=== PATIENT | female | born 1950 | race Caucasian/White ===

== ENCOUNTER 2016-12-29 13:42 | Emergency (ER) | payer OTHER ==
[2016-12-29 13:53] VITALS: BP 119/70; PULSE 87; RESP 20; TEMP 98.2
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
--- NOTE | 2016-12-29 14:50 | XR ---
EXAMINATION TYPE: XR knee complete RT DATE OF EXAM: 12/29/2016 CLINICAL HISTORY: Pain and swelling for 3 weeks. TECHNIQUE: Three views of the right knee are obtained. COMPARISON: None. FINDINGS: There is no acute fracture/dislocation evident in right knee. Mild joint tricompartment j oint space loss is seen. There is spur superior anterior patellar distal quadriceps tendon attachment . Soft tissue and suprapatellar bursa is consistent with moderate joint effusion, nonspecific finding . IMPRESSION: There is mild degenerative change with moderate to large suprapatellar joint effusion.
--- NOTE | 2016-12-29 15:34 | US ---
EXAMINATION TYPE: US venous doppler duplex LE RT DATE OF EXAM: 12/29/2016 3:16 PM COMPARISON: NONE CLINICAL HISTORY: Pain. rt knee pain x 1 month. No hx of DVT or on blood thinners. SIDE PERFORMED: Right TECHNIQUE: The lower extremity deep venous system is examined utilizing real time linear array sonog dean with graded compression, doppler sonography and color-flow sonography. VESSELS IMAGED: External Iliac Vein (EIV) Common Femoral Vein Deep Femoral Vein Greater Saphenous Vein * Femoral Vein Popliteal Vein Small Saphenous Vein * Proximal Calf Veins (* superficial vessels) Right Leg: Appears negative for DVT Grayscale, color doppler, spectral doppler imaging performed of the deep veins of the right lower ext remity. There is normal flow, compressibility, vascular waveforms of the right lower extremity. IMPRESSION: No ultrasound evidence for acute DVT in the right lower extremity.
== END 2016-12-29 16:02 | disposition home or self-care (01) ==
LOC: EC 13:42
DX: M25.461 Effusion, right knee (principal); F17.200 Nicotine dependence, unspecified, uncomplicated; Z79.899 Other long term (current) drug therapy
CPT/HCPCS: 99284

== ENCOUNTER 2017-10-24 18:19 | Emergency (ER) | payer OTHER ==
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
[2017-10-24 19:02] LABS: Basophils % (A) 0 %; Eosinophils # (A) 0.1 k/uL (0-0.7); Eosinophils % (A) 1 %; HCT 44.6 % (34.0-46.0); HGB 15.1 gm/dL (11.4-16.0); Lymphocytes # (A) 2.2 k/uL (1.0-4.8); Lymphocytes % (A) 23 %; MCH 32.4 pg (25.0-35.0); MCHC 33.9 g/dL (31.0-37.0); MCV 95.7 fL (80.0-100.0); Mean Platelet Volume 7.7; Monocytes # (A) 0.6 k/uL (0-1.0); Monocytes % (A) 6 %; Neutrophils # (A) 6.4 k/uL (1.3-7.7); Neutrophils % (A) 67 %; Platelet Count 272 k/uL (150-450); RBC 4.66 m/uL (3.80-5.40); WBC 9.5 k/uL (3.8-10.6)
[2017-10-24 19:10] VITALS: RESP 16
[2017-10-24 19:13] LABS: ALT 77 U/L (9-52); AST 58 U/L (14-36); Albumin 4.5 g/dL (3.5-5.0); Alcohol <10 mg/dL; Alkaline Phosphatase 103 U/L (38-126); Amylase 104 U/L (30-110); Anion Gap 15 mmol/L; Blood Urea Nitrogen 15 mg/dL (7-17); Calcium 9.3 mg/dL (8.4-10.2); Carbon Dioxide 22 mmol/L (22-30); Chloride 104 mmol/L (98-107); Glucose 126 mg/dL (74-99); Lipase 203 U/L (23-300); Magnesium 2.1 mg/dL (1.6-2.3); Potassium 3.8 mmol/L (3.5-5.1); Sodium 141 mmol/L (137-145); Total Bilirubin 0.5 mg/dL (0.2-1.3); Total Protein 7.5 g/dL (6.3-8.2)
[2017-10-24 19:29] LABS: Creatine Kinase 78 U/L (30-135)
--- NOTE | 2017-10-24 19:33 | XR ---
EXAMINATION: XR chest 2V DATE AND TIME: 10/24/2017 7:04 PM ORDERING PROVIDER: Justin Llanos MD CLINICAL INDICATION: Chest Pain TECHNIQUE: PA and lateral COMPARISON: 01/03/2010 DESCRIPTION: Architectural distortion related with scoliosis noted. The lungs appear to be clear. The pleural spaces are negative. The cardiac silhouette is not enlarged. The mediastinal and pleural sasha houettes are unremarkable. The skeletal structures are intact without focal findings. The soft tissues are unremarkable. IMPRESSION: NO ACUTE PROCESS.
[2017-10-24 19:34] LABS: Partial Thromboplastin Time 22.2 sec (22.0-30.0); Prothrombin Time 9.6 sec (9.0-12.0)
[2017-10-24 19:41] LABS: Creatine Kinase MB 0.5 ng/mL (0.0-2.4); Troponin I <0.012 ng/mL (0.000-0.034)
[2017-10-24 22:37] VITALS: BP 148/71; PULSE 89; TEMP 97
== END 2017-10-24 22:52 | disposition home or self-care (01) ==
LOC: EC 18:19
DX: M94.0 Chondrocostal junction syndrome [Tietze] (principal); J44.9 Chronic obstructive pulmonary disease, unspecified; F17.200 Nicotine dependence, unspecified, uncomplicated
CPT/HCPCS: 36415; 71046; 80053; 80320; 82150; 82550; 82553; 83690; 83735; 84484; 85025; 85610; 85730; 93005; 99285

== ENCOUNTER → 2023-12-13 | Outpatient (CLI) | payer MEDICARE ==
[2023-12-13 11:52] VITALS: BP 121/78; PULSE 72; RESP 18; TEMP 97.6
--- NOTE | 2023-12-13 12:28 | P.GSCN ---
History of Present Illness Consult date: 12/13/23 Reason for Consult: abnormal mammogam and ultrasound Requesting physician: Deborah Driver History of present illness: Natalie is a 73-year-old female seen in consultation for Reta Driver regarding the radiographic abnormality and bilateral breast. [place] [address]. This revealed progressive increasing pleomorphic appearing calcifications in the right breast in the upper inner q uadrant with a new second grouping of calcifications more anteriorly. In the left breast there was a nodular density identified and a left breast ultrasound and diagnostic mammogram were recommended. These were performed and [id number]. The patient was noted to have persistent nodular asymmetry in the outer left breast and an ultrasound revealed a hypoechoic mass 1:00 3 cm from the nipple serial 0.4 cm in size. In the context of the findings in the right breast was recommended that an ultrasound core biopsy of this lesion be performed. Of concern is the fact that the calcifications of [place] [id number]. She was told she needed a biopsy last year and did not have it done. She then had some uterine concerns and did not have it done. she is not complaining of any recent trauma or infection in her breast. She is complaining of some nodularity in her right breast. It has been there for about a year. She is not sure if it has changed in size. She complains of bilateral nipple pain. surgery: no breast surgery, no biopsies in the past Caffiene: 6 pops/day nicotine: stopped 3 months ago, used to smoke 11/ PPD for 50 years alcohol: an alcoholic occasional now BCP: < 1 year hormones: none family history: mother: mass in her breast maternal aunt; breast sister: breast cancer hormonal history: Menarche: 15 , age at first : 25, breat fed: no menopause: 47 Surgical History: colonoscopy Medical History: Scoliosis Emphysema COPD HTN social history: Nicotine: Used to smoke 1-1/2 packs per day for 50 years stopped 3 months ago Alcohol: Recovering alcoholic, occasional beer now Drugs:none Review of Systems - Constitutional Denies fever, Denies weight loss - EENT Eyes: bilateral blurred vision Ears: bilateral: tinnitus Ears, nose, mouth and throat: Denies dysphagia - Breasts bilateral: as per HPI - Cardiovascular Reports shortness of breath, Denies chest pain - Respiratory Reports as per HPI - Gastrointestinal Gastrointestinal Comment(s): diverticulitis Reports constipation, Reports diarrhea - Genitourinary Genitourinary: Denies dysuria, Denies hematuria Menstruation: Reports postmenopausal - Musculoskeletal Musculoskeleta Comment(s): back and neck pain - Integumentary Reports unusual bruising, Denies rash - Neurological Denies headaches, Denies syncope - Psychiatric Reports as per HPI, Reports anxiety, Reports depression - Endocrine Reports fatigue - Hematologic/Lymphatic Denies easy bleeding, Denies easy bruising - Allergic/Immunologic Reports as per HPI Past Medical History Past Medical History: COPD, Hypertension Additional Past Medical History / Comment(s): scoliosis, previous problem with the right knee--effusion, emphysema.. Herniated disc L4,L5, Left knee with edema History of Any Multi-Drug Resistant Organisms: None Reported Past Surgical History: Section Past Anesthesia/Blood Transfusion Reactions: No Reported Reaction Past Psychological History: Anxiety, Depression Smoking Status: Current every day smoker Past Alcohol Use History: Occasional Additional Past Alcohol Use History / Comment(s): A couple beers a week Past Drug Use History: None Reported Medications and Allergies Home Medications Medication Instructions Recorded Confirmed Type ALPRAZolam [Xanax] 0.5 mg PO ONCE PRN 10/24/17 12/13/23 History lisinopriL [Zestril] 20 mg PO BID 12/26/22 12/13/23 History Sertraline [Zoloft] 50 mg PO DAILY 12/04/23 12/13/23 History Allergies Allergy/AdvReac Type Severity Reaction Status Date / Time No Known Allergies Allergy Verified 12/13/23 11:46 Surgical - Exam Vital Signs Temp Pulse Resp BP Pulse Ox 97.6 F 72 18 121/78 93 L 12/13/23 11:46 12/13/23 11:46 12/13/23 11:46 12/13/23 11:46 12/13/23 11:46 - General moderate distress - Eyes normal ocular movement - Neck trachea midline - Respiratory normal respiratory effort, clear to auscultation - Cardiovascular Heart Sounds: normal: S1, S2 - Abdomen Abdomen: soft, non tender, no guarding, no rigid, no rebound - Integumentary normal turgor - Musculoskeletal scoliosis normal gait - Psychiatric oriented to time, oriented to person, oriented to place, speech is normal, memory intact Breast Exam: BRA: 34B Inspection: bilateral grade 2 ptosis Palpation: Right breast: Multiple positional exam nodularity upper inner quadrant approximately 2 cm in size, no other dominant masses or nodules of concern Right axilla: No adenopathy of concern Left breast: Multiple positional exam fibrocystic changes no dominant masses or nodules of concern Left axilla: No adenopathy of concern Results mammogram and ultrasound personally interpreted mammogram was from [address]73, ultrasound and diagnostic left breast mammogram [id number] Recommendation: 1. Right breast stereotactic core biopsy 2. Left breast ultrasound-guided core biopsy Assessment and Plan Assessment: Impression: 73-year-old female with radiographic abnormality bilateral breast Palpable mass right breast scoliosis Plan: Right breast stereotactic core biopsy Left breast ultrasound-guided core biopsy Risks and benefits of the procedure discussed with the patient, her , and her daughter. They understand and wish to proceed. Risks include but are not limited to bleeding, infection, reaction to the anesthetic. Additionally if the biopsy profile to be discordant and further tissue acquisition may be necessary. At the termination of the procedure a marking clip will be left in the breast. The patient and her family understand this. CC: Deborah Drivre
== END ==
LOC: WWCWWP 10:27
PROVIDERS: ATTEND Surgery
DX: R92.1 Mammographic calcification found on diagnostic imaging of breast (principal); N64.89 Other specified disorders of breast; N63.10 Unspecified lump in the right breast, unspecified quadrant; N63.21 Unspecified lump in the left breast, upper outer quadrant; N64.4 Mastodynia; Z87.891 Personal history of nicotine dependence; Z80.3 Family history of malignant neoplasm of breast

== ENCOUNTER → 2023-12-20 | Day surgery (SDC) | payer MEDICARE ==
[2023-12-20] MEDS: ALPRAZolam 0.25 MG TAB PO PRN (07:40)
[2023-12-20 07:45] VITALS: BP 118/78; PULSE 77; RESP 16; TEMP 98.1
--- NOTE | 2023-12-20 08:27 | P.CON ---
Consult Note - . Consult date: 12/20/23 Assessment/Plan:: Natalie is a 73-year-old female seen in consultation for Deborah Driver on 12-13-2023 regarding a radiographic abnormalities bilaterally in the breast. She had had a bilateral mammogram performed on 11-12-2023. This revealed progressive increasing pleomorphic appearing calcifications in the right breast in the upper inner quadrant with a new second grouping of calcifications more anteriorly. In the left breast there was a nodular density identified and a left breast ultrasound and diagnostic mammogram were recommended. These were performed on 11-21-2023. The patient was noted to have persistent nodular asymmetry in the outer left breast and an ultrasound revealed a hypoechoic mass at 1:00 3 cm from the nipple 0.4 cm in size. In the context of these findings the patient had been scheduled for a right breast stereotactic core biopsy and a left breast ultrasound-guided core biopsy. The patient had further workup performed when she presented for stereo biopsy on 12-20-2023. This workup was an ultrasound of the right breast and in this ultrasound the area of microcalcifications was clearly identified as was a suspicious lymph node. Therefore after personal review of the mammogram and ultrasound performed on this date with Dr. Kareen Stock and discussion with Dr. Kareen Stock it was decided that the best approach would be an ultrasound-guided core biopsy of the lesion in the right breast as well as the right axilla. Aguilar tionally secondary to the ability to use utilize lidocaine being limited the area in the left breast will undergo an ultrasound core biopsy at a different date. The patient will then follow-up with Dr. Lance. This information was discussed with the patient in the presence of Kayleen Gaxiola. The patient understands that instead of a stereotactic core biopsy today she will have an ultrasound core biopsy of the lesion in the right breast as well as a right axillary lymph node. She will then be scheduled for a left breast ultrasound-guided core biopsy. All questions were answered. The patient will follow-up with Dr. Lance following the biopsies.
== END ==
LOC: RADMAMWWP 07:15
PROVIDERS: ATTEND Surgery
DX: N64.89 Other specified disorders of breast (principal)

== ENCOUNTER → 2023-12-20 | Day surgery (SDC) | payer MEDICARE ==
--- NOTE | 2024-01-22 09:04 | USB ---
Risk Values: Sakina 5 year model risk: 6.4%. NCI Lifetime model risk: 16.8%. Prior Study Comparison: 02/19/2005 Left Diagnostic Mammogram, [facility]. 04/14/2008 Bilateral Diagnostic Mammogram, [facility]. 07/18/2009 Bilateral Screening Mammogram, [facility]. Pathology Description: Location: 2 o'clock, axilla. Needle Type: Celero Cores: 2 Gauge: 12 Complications: Excessive bleeding Held pressure at axilla 15+ minutes; meño reassessed and rebandaged after " Mammo" The procedure of ultrasound guided core biopsy was explained to the patient. Benefits, alternatives, and risks were discussed. An informed consent was then obtained. The patient was placed in supine positioning for imaging and for the procedure. The overlying skin was prepped and draped in usual sterile fashion. Lidocaine buffered with bicarbonate was used as anesthetic into the skin and subcutaneous tissue up to area of concern in the right 2:00 breast and right axilla breast. A elizabeth was made with surgical scalpel. Under ultrasound guidance, a 12-gauge vacuum assisted biopsy gun device was used to obtain 3 core samples were obtained from the right to chronic lesion and 2 samples were obtained from the abnormal right axillary lymph node. Following this, a biopsy clip was left in each lesion. The patient tolerated the procedure well without any immediate complication. The patient was kept in the radiology department for short stay after the procedure and then discharged home in stable condition. Postprocedure mammogram: Patient refused postprocedural mammogram. Impression: Successful, uncomplicated ultrasound guided core biopsy of area of concern in the right 2:00 breast and right axillary lymph node, full pathology results to follow. Pathology Results: Result: Malignant, Invasive ductal carcinoma. Pathology and radiology were reviewed. Findings are concordant. A. RIGHT BREAST, 2:00, NEEDLE CORE BIOPSY: Invasive poorly differentiated ductal carcinoma (Grade 3). See Surgical Pathology Cancer Case Summary. B. RIGHT AXILLA LYMPH NODE, CORE BIOPSY: Lymph node positive for metastatic poorly differentiated ductal mammary carcinoma. Greatest dimension of tumor deposit measures 9 mm. See Surgical Pathology Cancer Case Summary. Overall Assessment: Malignant Management: Diagnostic Breast Ultrasound of the right breast in 6 months. Electronically signed and approved by: Ike Hidalgo M.D. Radiologis
== END ==
LOC: RADUSWWP 07:12
PROVIDERS: ATTEND Surgery
DX: R92.8 Other abnormal and inconclusive findings on diagnostic imaging of breast
CPT/HCPCS: 88305; 88342; 88341; 19083; 19084; A4648

== ENCOUNTER → 2024-01-02 | Day surgery (SDC) | payer MEDICARE ==
--- NOTE | 2024-01-30 09:18 | USB ---
Findings: The outside [place] report indicates a 4 mm round hypoechoic area 3 cm from the nipple 1:00 position left breast. The report indicates that this is not a mammographic correlate for an area located more peripherally on mammogram and which may represent superimposition shadow given the lack of an ultrasound finding. We scanned the abdomen around the 1:00 position, 3 cm from the nipple. Multiple small cysts or areas of duct ectasia are present, largest measuring 7 x 4 x 8 mm. No suspicious hypoechoic lesion or mass is identified that would warrant biopsy. Biopsy is being deferred at this time. Six-month follow-up mammogram and ultrasound can be performed. Findings and impression are discussed with the patient. IMPRESSION: Discontinued left breast ultrasound-guided biopsy. Findings here represent either small cysts or ectatic ducts measuring up to 8 mm. No suspicious biopsy target is identified. Refer to impression on patient's outside [place] report as to deciding between MRI versus six-month follow-up mammogram and ultrasound of the left breast. RECOMMENDATION: Proceed with appropriate surgical and oncologic management of patient's biopsy-proven right breast cancer. Management: Oncologic Management of the right breast. Electronically signed and approved by: Meredith Palomares M.D. Radiologist
--- NOTE | 2024-02-04 15:48 | MM ---
Reason for Exam: Post Procedure Mammogram. Last mammogram was performed 14 year(s) and 6 month(s) ago. Patient History: Menarche at age 16. First Full-Term at age 25. Postmenopausal. Breast cancer, right, age 73. 12/20/2023, US biopsy breast add'l VAD RT on the Right side. 12/20/2023, Malignant US biopsy breast VAD RT on the right side. 02/19/2005, Benign Cyst Aspiration on the left side. 02/19/2005, Benign Cyst Aspiration on the left side. 01/02/2024, US discontinued breast core LT on the left side. Maternal aunt had breast cancer, age 42. Sister had breast cancer, age 57. Mother had breast cancer, age 80. Prior Study Comparison: 02/19/2005 Left Diagnostic Mammogram, [facility]. 04/14/2008 Bilateral Diagnostic Mammogram, [facility]. 07/18/2009 Bilateral Screening Mammogram, [facility]. Tissue Density: Right: The breasts are heterogeneously dense, which may obscure small masses. Findings: Postbiopsy mammogram is being performed, delayed from 12/20/2023 due to postbiopsy hematoma at that time. Pleomorphic calcifications redemonstrated upper outer quadrant. Microclip in this region from recent biopsy. Additional microcalcifications located at a middle depth along the retroareolar plane for possible extent of 4.5 cm. Areas of asymmetric density medial right CC view anterior and middle depth also noted. Please refer to findings on MRI 02/01/2024 for suspicion of multicentric disease. Overall Assessment: Known biopsy proven malignancy, BI-RAD 6 Management: Surgical Consultation of the right breast. Electronically signed and approved by: Meredith Palomares M.D. Radiologist
== END ==
LOC: RADUSWWP 12:00
PROVIDERS: ATTEND Surgery
DX: Z53.8 Procedure and treatment not carried out for other reasons (principal); N60.42 Mammary duct ectasia of left breast
CPT/HCPCS: 77065

== ENCOUNTER → 2024-01-22 | Outpatient (CLI) | payer MEDICARE ==
[2024-01-22 12:17] VITALS: BP 118/74; PULSE 98; RESP 16; TEMP 98.1
--- NOTE | 2024-01-22 13:07 | P.PN ---
Subjective Progress Note Date: 01/22/24 Principal diagnosis: right breast IDC, ER/AL(-), Her2(+), ? lesion in the left breast Natalie is a 73 year old female who was diagnosed with a right breast grade 3 invasive ductal carcinoma. This is ER/AL negative and HER2 positive. The patient was also noted to have persistent nodular asymmetry in the outer left breast and an ultrasound core biopsy attempt was canceled. It was recommended as per radiology at that time that an MRI of the breast be performed. Presented at tumor board on 01-21-2024. At tumor board the recommendation was for neoadjuvant treatment. Objective - Vital Signs Vital signs: Vital Signs Temp 98.1 F 01/22/24 12:10 Pulse 98 01/22/24 12:10 Resp 16 01/22/24 12:10 BP 118/74 01/22/24 12:10 Pulse Ox 97 01/22/24 12:10 FiO2 Intake & Output 01/21/24 01/22/24 01/22/24 18:59 06:59 18:59 Weight 71.214 kg - Constitutional General appearance: Present: cooperative, mild distress - EENT ENT: Present: hearing grossly normal - Neck Neck: Present: normal ROM - Integumentary Integumentary: Present: normal turgor - Psychiatric Psychiatric: Present: A&O x's 3, appropriate affect, intact judgment & insight Assessment and Plan Assessment: Impression: Patient seen with independant historian, recorded appointment conversation Questionable lesion left breast Right breast invasive ductal carcinoma grade 3 ER AL negative HER2 positive Plan: Appointment medical oncology Breast MRI Follow-up here in 2 months CC: Dr. Michaels
== END ==
LOC: WWCWWP 11:24
PROVIDERS: ATTEND Surgery
DX: C50.911 Malignant neoplasm of unspecified site of right female breast (principal); N64.89 Other specified disorders of breast; F17.200 Nicotine dependence, unspecified, uncomplicated; Z17.1 Estrogen receptor negative status [ER-]

== ENCOUNTER → 2024-02-01 | Outpatient (CLI) | payer MEDICARE ==
--- NOTE | 2024-02-04 08:45 | BMR ---
Addendum ADDENDUM: AP dimension of primary lesion likely estimates 4.5 cm by MRI. 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 Pretreatment staging. COMPARISON: PRIOR MRIs: None available. Correlation to mammograms: 11/21/2023, 11/22/2022. Correlation to ultrasound: 11/21/2023, 12/20/2023. CONTRAST: 7 cc Gadavist IV gadolinium contrast TECHNIQUE: Study was performed at [facility] with Radiologic interpretation by [facility] Multiplanar multisequence MR imaging of both breasts was performed with a dedicated breast coil. Images were obtained before and after administration of IV gadolinium, using the standard breast mass protocol. Computer aided detection was utilized for interpretation. FINDINGS: LMP: Postmenopausal General breast composition: The breast is heterogeneously dense Background parenchymal enhancement: Marked Patient motion limits evaluation. RIGHT BREAST: The T2 weighted series shows no areas of abnormal signal intensity. Review of the dynamic series shows irregular mass in the upper inner quadrant measuring approximately 2.3 x 2.2 x 1.4 cm with biopsy site marker. There is ventral extension of non mass enhancement by 1.8 cm from the primary mass. Additional scattered foci of enhancement are noted within the upper inner quadrant to the retroareolar breast within 1 cm of the nipple. Few scattered foci in the lateral breast. These area appear to correspond to calcifications appreciated mammographically. LEFT BREAST: The T2 weighted series shows no areas of abnormal signal intensity. Review of the dynamic series shows marked background enhancement significantly limiting evaluation for additional sites of disease in the left breast. These areas demonstrate similar to [place] that is to known primary malignancy in the right breast. LYMPH NODES: Single enlarged 2.0 cm right axillary lymph node. No evidence of left axillary or internal mammary adenopathy. IMPRESSION: RIGHT BREAST: Known malignancy in the right breast at 2 o'clock estimating at least 2.3 cm with 1.8 cm ventral non-mass enhancement. Additional areas of enhancement in the right breast in a multicentric distribution are concerning for additional sites of disease. These appear to correspond to calcifications appreciated mammographically. (Retroareolar and lateral) If breast conservation is planned, additional stereotactic biopsies of farthest extent can be performed following magnification views for biopsy planning. Known metastasis to enlarged right axillary lymph node. LEFT BREAST: No MR evidence of malignancy. OVERALL ASSESSMENT -- BI-RADS 5: Highly suggestive of malignancy MTDD
== END | disposition home or self-care (01) ==
LOC: RADMRIMAIN 10:32
PROVIDERS: ATTEND Surgery
DX: C50.211 Malignant neoplasm of upper-inner quadrant of right female breast (principal)
CPT/HCPCS: 77049

== ENCOUNTER → 2024-02-04 | Outpatient (CLI) | payer MEDICARE ==
--- NOTE | 2024-02-04 16:57 | CA ---
Transthoracic Echo Report Name: Natalie Forde Age: 73 Gender: F : 1950 Exam Date: 02/04/2024 11:30 Exam Location: [place] [facility] Ht (in): 61 Wt (lb): 157 Ordering Physician: Brenton Oconnell MD Attending/Referring Phys: Communications Department Chair Mili Elder RDCS Procedure CPT: Indications: Z01.818 Chemo Cardiac Hx: Technical Quality: Good Contrast 1: Total Dose (mL): Contrast 2: Total Dose (mL): MEASUREMENTS (Male / Female) Normal Values 2D ECHO LV Diastolic Diameter PLAX 3.8 cm 4.2 - 5.9 / 3.9 - 5.3 cm LV Systolic Diameter PLAX 2.5 cm IVS Diastolic Thickness 1.1 cm 0.6 - 1.0 / 0.6 - 0.9 cm LVPW Diastolic Thickness 0.9 cm 0.6 - 1.0 / 0.6 - 0.9 cm LV Relative Wall Thickness 0.5 RV Internal Dim ED PLAX 2.8 cm LA Systolic Diameter LX 3.3 cm 3.0 - 4.0 / 2.7 - 3.8 cm LV Diastolic Volume MOD 4C 70.4 cm??? LV Systolic Volume MOD 4C 28.5 cm??? LV Ejection Fraction MOD 4C 59.5 % LV Cardiac Index MOD 4C 1697.6 cm???/min???m??? LV Diastolic Length 4C 7.3 cm LV Systolic Length 4C 5.9 cm LV Diastolic Volume MOD 2C 46.9 cm??? LV Systolic Volume MOD 2C 17.2 cm??? LV Ejection Fraction MOD 2C 63.4 % LV Cardiac Index MOD 2C 1206.9 cm???/min???m??? LV Diastolic Length 2C 7.5 cm LV Systolic Length 2C 5.9 cm LA Volume 40.8 cm??? 18 - 58 / 22 - 52 cm??? LA Volume Index 22.9 cm???/m??? 16 - 28 cm???/m??? M-MODE Aortic Root Diameter MM 2.8 cm AV Cusp Separation MM 2.0 cm DOPPLER AV Peak Velocity 160.3 cm/s AV Peak Gradient 10.3 mmHg MV Area PHT 2.9 cm??? Mitral E Point Velocity 98.8 cm/s Mitral A Point Velocity 112.3 cm/s Mitral E to A Ratio 0.9 MV Deceleration Time 260.4 ms TR Peak Velocity 200.1 cm/s TR Peak Gradient 16.0 mmHg Right Ventricular Systolic Press 21.0 mmHg FINDINGS Left Ventricle Left ventricular ejection fraction is estimated at 55-60 %. Small left ventricular cavity. Mildly increased septal wall thickness. Good systolic strain Right Ventricle Normal right ventricular size and function. Right ventricular systolic pressure within normal limits. Right Atrium Normal right atrial size. No right atrial thrombus or mass seen. Left Atrium Normal left atrial size. No left atrial thrombus or mass present. Mitral Valve Mitral valve not well visualized. No mitral stenosis, regurgitation or prolapse. Aortic Valve Trileaflet aortic valve. No aortic valve stenosis or regurgitation. Tricuspid Valve Structurally normal tricuspid valve. No tricuspid stenosis, regurgitation or prolapse. Pulmonic Valve Structurally normal pulmonic valve. No pulmonic regurgitation. Pericardium No pericardial or pleural effusion. Aorta Normal size aortic root and proximal ascending aorta. CONCLUSIONS Normal LV function Previewed by: Dr. Gera Dong MD (Electronically Signed) Final Date: 04 February 2024 16:56
== END | disposition home or self-care (01) ==
LOC: RADECHMAIN 11:20
PROVIDERS: ATTEND Internal Medicine Hematology & Oncology
DX: Z01.818 Encounter for other preprocedural examination (principal); J44.9 Chronic obstructive pulmonary disease, unspecified; C50.211 Malignant neoplasm of upper-inner quadrant of right female breast; I10 Essential (primary) hypertension; Z71.3 Dietary counseling and surveillance
CPT/HCPCS: 93306

== ENCOUNTER 2024-02-12 07:53 | Day surgery (SDC) | payer MEDICARE ==
[2024-02-10 09:13] VITALS: BMI 29.5
[~2024-02-12 07:53] MED LIST: Pre Op ABX Message 1 EACH MISC MISCELLANE ONE; fentaNYL (PF) 50 MCG/ML 2 ML AMP IV PRN
[2024-02-12 08:08] VITALS: TEMP 97.8
[2024-02-12] MEDS: IV FLUID CONTINUATION 1,000 ML IV ONE ×2 (08:15→09:28)
[2024-02-12] MEDS: ONDANSETRON 4 MG/2 ML VIAL IVP ONE (08:17)
[2024-02-12] MEDS: DEXAMETHASONE SOD PHOSPHATE 4 MG/ML 1 ML VIAL IV ONE (08:17)
[2024-02-12] MEDS: HEPARIN SODIUM,PORCINE 5,000 UNIT/ML 1 ML VIAL SQ PRN (08:17)
[2024-02-12] MEDS: ACETAMINOPHEN TAB 500 MG TAB PO PRN (08:18)
[2024-02-12] MEDS: LACTATED RINGERS 1,000 ML IV SCH (08:19)
[2024-02-12] MEDS ORDERED: fentaNYL (PF) 50 MCG/ML 2 ML AMP ONE (08:24)
[2024-02-12] MEDS ORDERED: ceFAZolin 1 GM/50 ML BAG (PMX) ONE (08:24)
[2024-02-12] MEDS ORDERED: KETOROLAC 15 MG/ML 1 ML VIAL ONE (08:24)
[2024-02-12] MEDS ORDERED: PHENYLEPHRINE-0.9% NACL SYG 1,000 MCG/10 ML SYRINGE ONE (08:24)
[2024-02-12] MEDS ORDERED: LIDOCAINE 1% INJ 10MG/ML (20 ML MDV) ONE (08:24)
[2024-02-12] MEDS ORDERED: ePHEDrine 50 MG/ML 1 ML VIAL ONE (08:24)
[2024-02-12] MEDS ORDERED: MIDAZOLAM 2 MG/2 ML VIAL ONE (08:24)
[2024-02-12] MEDS ORDERED: PROPOFOL 10 MG/ML 20 ML VIAL IV ONE (08:24)
[2024-02-12] MEDS: SODIUM CHLORIDE 0.9% 100 ML with ceFAZolin 2,000 MG IV ONE (08:29)
--- NOTE | 2024-02-12 08:29 | P.GSHP ---
History of Present Illness H&P Date: 02/12/24 Chief Complaint: Right breast cancer 73-year-old female here for Port-A-Cath placement. Patient recently diagnosed with right-sided breast cancer and is scheduled to start chemotherapy in the neoadjuvant setting next week. Patient has not had a port previously. Past Medical History Past Medical History: Cancer, COPD, Hypertension Additional Past Medical History / Comment(s): scoliosis, previous problem with the right knee--effusion, emphysema.. Herniated disc L4,L5, Left knee with edema, breast cancer rt History of Any Multi-Drug Resistant Organisms: None Reported Past Surgical History: Section Additional Past Surgical History / Comment(s): COLONOSCOPY Past Anesthesia/Blood Transfusion Reactions: No Reported Reaction Smoking Status: Former smoker - Past Family History Sister(s) Family Medical History: Cancer Mother Family Medical History: Cancer Daughter(s) Family Medical History: Cancer Medications and Allergies Home Medications Medication Instructions Recorded Confirmed Type lisinopriL [Zestril] 20 mg PO BID 12/26/22 02/12/24 History Sertraline [Zoloft] 50 mg PO DAILY 12/04/23 02/12/24 History diazePAM [Valium] 5 mg PO BID PRN 02/10/24 02/12/24 History traMADol HCL 50 mg PO Q6H PRN 02/10/24 02/12/24 History Allergies Allergy/AdvReac Type Severity Reaction Status Date / Time No Known Allergies Allergy Verified 02/12/24 08:04 Surgical - Exam Vital Signs Temp Pulse Resp BP Pulse Ox 97.8 F 75 16 124/62 92 L 02/12/24 08:06 02/12/24 08:06 02/12/24 08:06 02/12/24 08:06 02/12/24 08:06 Physical exam: General: Well-developed, well-nourished HEENT: Normocephalic, sclerae nonicteric Abdomen: Nontender, nondistended Extremities: No edema Neuro: Alert and oriented Assessment and Plan (1) Breast cancer, right Narrative/Plan: Will proceed with Port-A-Cath placement at this time. Risks of bleeding, infection, DVT, pneumothorax, catheter malfunction, anesthesia related complications were discussed. The patient understands and wishes to proceed. Current Visit: Yes Status: Acute Code(s): C50.911 - MALIGNANT NEOPLASM OF UNSP SITE OF RIGHT FEMALE BREAST SNOMED Code(s): 447645845
[2024-02-12] MEDS: LIDOCAINE 1% INJ 10MG/ML (20 ML MDV) SQ ONE ×2 (08:39→09:09)
[2024-02-12] MEDS ORDERED: traMADol 50 MG TAB PO PRN (09:34)
[2024-02-12] MEDS ORDERED: NALOXONE 0.4 MG/ML 1 ML VIAL IV PRN (09:34)
[2024-02-12] MEDS ORDERED: ACETAMINOPHEN TAB 325 MG TAB PO PRN (09:34)
--- NOTE | 2024-02-12 09:36 | P.OP ---
Date of Procedure: 02/12/24 Procedure(s) Performed: PREOPERATIVE DIAGNOSIS: Right breast cancer POSTOPERATIVE DIAGNOSIS: Same PROCEDURE: Port-A-Cath placement with fluoroscopic and ultrasound guidance SURGEON: Mary EBL: Minimal ANESTHESIA: General COMPLICATIONS: None OPERATIVE PROCEDURE: Patient was brought and placed on the operative table in the supine position. The patient was placed under general anesthesia at that time. The chest and neck were prepped and draped in usual sterile fashion. The ultrasound probe was used to identify the location of the left internal jugular vein. The skin was localized with lidocaine. The Seldinger needle was advanced into the IJ under ultrasound guidance. The wire was advanced through the needle under fluoroscopic guidance into the superior vena cava. A port pocket was created in the left infraclavicular location. The catheter was tunneled from the wire entrance site to the port pocket. The port was then connected to the catheter. The dilator introducer was threaded over the guidewire. The guidewire and dilator were then removed. The catheter was advanced through the introducer and introducer was then removed. The tip was seen to be in the right atrial junction via fluoroscopy. A picture of the radiograph showing the tip of the catheter was taken. Port was flushed with both saline and a Hep-Lock solution. There was good flow both in and out of the port. The port was sutured in underlying tissues using 3-0 silk sutures. The subcutaneous tissues were reapproximated using 3-0 Vicryl sutures and the skin at both locations using 4-0 Monocryl sutures. Skin glue and sterile dressings then applied. DISPOSITION: Stable to recovery room
[2024-02-12] MEDS: HYDROmorphone 0.5 MG/0.5 ML SYRINGE IVP PRN (09:50)
--- NOTE | 2024-02-12 10:11 | XR ---
EXAMINATION TYPE: XR chest 1V confirm line plcmt DATE OF EXAM: 02/12/2024 9:56 AM CLINICAL INDICATION: Female, 73 years old with history of Check Line placement; [facility] COMPARISON: Chest radiographs from 10/24/2017 TECHNIQUE: XR chest 1V confirm line plcmt Frontal view of the chest. FINDINGS: Lungs/Pleura: There is no evidence of pleural effusion, focal consolidation, or pneumothorax. Pulmonary vascularity: Unremarkable. Heart/mediastinum: Cardiomediastinal silhouette is unremarkable. Musculoskeletal: No acute osseous pathology. Other findings: None Lines/Tubes: Tulteh-r-Qbxz projecting over the left hemithorax with distal tip at the cavoatrial junction. IMPRESSION: 1. No evidence for pneumothorax. Left [id number]-t-Hlih in appropriate position. 2. No acute cardiopulmonary disease/process. [facility], , 02/12/2024 10:09 AM
[2024-02-12 10:12] VITALS: RESP 18
[2024-02-12 11:46] VITALS: BP 112/69; PULSE 99
--- NOTE | 2024-02-27 10:36 | FL ---
EXAMINATION TYPE: FL guided central line placemt DATE OF EXAM: 02/12/2024 9:19 AM COMPARISON: Pre Operative Images if available both CT/MRI or plain film CLINICAL INDICATION: Female, 73 years old with history of PORTACATH INSERTION; TECHNIQUE: FL guided central line placemt, multiple fluoroscopic images provided for procedure. Total fluoroscopy time: 2min 22.8 seconds Total submitted images to PACS: 3 DAP: 8.4430 mGym2 Gycm2 uGym2 cGycm2 or equivalent. FINDINGS: Fluoroscopic imaging for left central venous catheter insertion no evidence for pneumothorax. 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 IMPRESSION: 1. No evidence for intraoperative complication. 2. Please see the operative/procedural note for further details. [facility], , 02/27/2024 10:33 AM
== END 2024-02-12 11:58 | disposition home or self-care (01) ==
LOC: OR 07:53
PROVIDERS: ATTEND Surgery
DX: C50.911 Malignant neoplasm of unspecified site of right female breast (principal); I10 Essential (primary) hypertension; J43.9 Emphysema, unspecified; Z87.891 Personal history of nicotine dependence; Z79.899 Other long term (current) drug therapy
CPT/HCPCS: 77001; 36561; C1788; J2250; J1644; J1100; J2405; J0690 ×2; J2001; J3010; J1642; J1885; J2704; J1170; J2371

== ENCOUNTER → 2024-06-09 | Outpatient (CLI) | payer MEDICARE ==
--- NOTE | 2024-06-11 11:28 | BMR ---
EXAM DATE: 06/09/2024 EXAM DESCRIPTION: MRI-Breast Bilat (W/WO Contrast) INDICATION: Right breast carcinoma on neoadjuvant chemotherapy. Restaging. COMPARISON: Prior examination dated 02/01/2024. Correlation is also made with the mammogram and ultrasound dated 12/20/2023 and 11/12/2023 CONTRAST: 7.1 cc Gadavist contrast material. TECHNIQUE: Multi sequence multiplanar MR imaging of the breasts was obtained. Subsequently, after the uneventful intravenous administration of Gadavist contrast material, 6 dynamic sequences were then obtained. Post processing was performed utilizing a [employer] CAD workstation. FINDINGS: The breast are composed of heterogeneous fibroglandular tissue. There is mild background parenchymal enhancement identified. No axillary or internal mammary lymphadenopathy. Biopsy-proven metastatic right axillary lymph node with associated signal void has decreased with decreased cortical thickening since prior examination of 02/01/2024. There is no focal thickening or nipple retraction. The bone marrow signal intensity is unremarkable. No adenopathy in the visualized mediastinum. T2 weighted images demonstrated a few subcentimeter T2 bright lesions in both breasts suggestive of fibrocystic changes. Trace amount of fluid in the pleural spaces likely physiological. Post contrast images of the right breast in the superomedial quadrant demonstrated enhancing mass with associated signal void and washout kinetics has decreased and measures 0.9 x 0.7 x 1.2 cm (CT image 503 image 350 and series 601, image 141) versus 2.3 x 1.4 x 2.2 cm on 02/01/2024. No abnormal enhancement in the left breast to suggest malignancy. There is no abnormal signal or enhancement in the chest wall or subcutaneous tissue. IMPRESSION: 1. Known right posterior breast mass in the superomedial quadrant has decreased since prior examination of 02/01/2024. 2. Biopsy-proven right axillary lymph node has decreased with decreased cortical thickening since prior examination, consistent with treatment response. No axillary lymphadenopathy. 3. No MR evidence of malignancy in the left breast. Final assessment: BI-RADS category 6: Known malignancy: Appropriate management is recommended. MTDD
== END | disposition home or self-care (01) ==
LOC: RADMRIMAIN 14:17
PROVIDERS: ATTEND Internal Medicine Hematology & Oncology
DX: C50.211 Malignant neoplasm of upper-inner quadrant of right female breast (principal); N63.20 Unspecified lump in the left breast, unspecified quadrant
CPT/HCPCS: 77049; A9585

== ENCOUNTER → 2024-06-25 | Outpatient (CLI) | payer MEDICARE ==
--- NOTE | 2024-06-25 17:40 | CA ---
Transthoracic Echo Report Name: Natalie Forde Age: 73 Gender: F : 1950 Exam Date: 06/25/2024 13:31 Exam Location: [place] [facility] Ht (in): 61 Wt (lb): 156 Ordering Physician: Brenton Oconnell MD Attending/Referring Phys: Deborah Driver [facility] Demi Chef Mili Elder RDCS Procedure CPT: Indications: Z01.818 pre chemo Cardiac Hx: Technical Quality: Good Contrast 1: Total Dose (mL): Contrast 2: Total Dose (mL): MEASUREMENTS (Male / Female) Normal Values 2D ECHO LV Diastolic Diameter PLAX 4.1 cm 4.2 - 5.9 / 3.9 - 5.3 cm LV Systolic Diameter PLAX 3.0 cm IVS Diastolic Thickness 0.9 cm 0.6 - 1.0 / 0.6 - 0.9 cm LVPW Diastolic Thickness 1.0 cm 0.6 - 1.0 / 0.6 - 0.9 cm LV Relative Wall Thickness 0.5 RV Internal Dim ED PLAX 3.5 cm LA Systolic Diameter LX 3.6 cm 3.0 - 4.0 / 2.7 - 3.8 cm LV Diastolic Volume MOD 4C 97.0 cm??? LV Systolic Volume MOD 4C 36.4 cm??? LV Ejection Fraction MOD 4C 62.4 % LV Cardiac Index MOD 4C 2736.4 cm???/min???m??? LV Diastolic Length 4C 8.1 cm LV Systolic Length 4C 6.8 cm LV Diastolic Volume MOD 2C 68.3 cm??? LV Systolic Volume MOD 2C 22.5 cm??? LV Ejection Fraction MOD 2C 67.1 % LV Cardiac Index MOD 2C 2071.8 cm???/min???m??? LV Diastolic Length 2C 8.2 cm LV Systolic Length 2C 6.2 cm LA Volume 48.7 cm??? 18 - 58 / 22 - 52 cm??? LA Volume Index 27.5 cm???/m??? 16 - 28 cm???/m??? M-MODE Aortic Root Diameter MM 3.4 cm AV Cusp Separation MM 1.9 cm DOPPLER AV Peak Velocity 202.6 cm/s AV Peak Gradient 16.4 mmHg MV Area PHT 3.1 cm??? Mitral E Point Velocity 104.7 cm/s Mitral A Point Velocity 118.2 cm/s Mitral E to A Ratio 0.9 MV Deceleration Time 243.5 ms MV E' Velocity 8.9 cm/s Mitral E to MV E' Ratio 11.8 TR Peak Velocity 235.6 cm/s TR Peak Gradient 22.2 mmHg Right Ventricular Systolic Press 26.1 mmHg FINDINGS Left Ventricle Left ventricular ejection fraction is estimated at 55-60 %. Left ventricular cavity size normal. Left ventricular wall thickness normal. Normal left ventricular wall motion. Global longitudinal strain estimated at -25% (normal is less than -20%) Right Ventricle Normal right ventricular size and function. . Right ventricular systolic pressure within normal limits. Right Atrium Normal right atrial size. No right atrial thrombus or mass seen. Left Atrium Normal left atrial size. No left atrial thrombus or mass present. Mitral Valve Structurally normal mitral valve. Mild mitral regurgitation. Aortic Valve Trileaflet aortic valve. No aortic valve stenosis or regurgitation. Tricuspid Valve Structurally normal tricuspid valve. Mild tricuspid regurgitation. Pulmonic Valve Structurally normal pulmonic valve. No pulmonic regurgitation. Pericardium No pericardial effusion. Aorta Normal size aortic root and proximal ascending aorta. CONCLUSIONS LVEF 55% No obvious regional wall motion abnormality Normal LV size and systolic function with normal LV wall thickness. Global longitudinal strain estimated at -25% (normal is less than -20%) Mild mitral regurgitation, mild tricuspid regurgitation Normal right ventricular size and function. Previewed by: Dr Haider Woodward (Electronically Signed) Final Date: 25 June 2024 17:39
== END | disposition home or self-care (01) ==
LOC: RADECHMAIN 13:08
PROVIDERS: ATTEND Internal Medicine Hematology & Oncology
DX: Z01.818 Encounter for other preprocedural examination (principal); I08.1 Rheumatic disorders of both mitral and tricuspid valves
CPT/HCPCS: 93306

== ENCOUNTER 2024-07-21 10:57 | Day surgery (SDC) | payer MEDICARE ==
[~2024-07-21 10:57] MED LIST changes: +HYDROmorphone 0.5 MG/0.5 ML SYRINGE IVP PRN; -Pre Op ABX Message 1 EACH MISC MISCELLANE ONE; -fentaNYL (PF) 50 MCG/ML 2 ML AMP IV PRN
[2024-07-21 12:16] LABS: Glucose,Whole Blood 101 mg/dL (70-110)
[2024-07-21] MEDS: LACTATED RINGERS 1,000 ML IV SCH (12:17)
[2024-07-21] MEDS: IV FLUID CONTINUATION 1,000 ML IV ONE (12:20)
[2024-07-21] MEDS: ACETAMINOPHEN TAB 500 MG TAB PO PRN (12:49)
[2024-07-21] MEDS: ALPRAZolam 0.25 MG TAB PO STA (12:50)
--- NOTE | 2024-07-21 13:02 | P.NAPBC ---
NAPBC Queries - NAPBC Queries Was patient's case review presented at [facility] tumor board? If no, comment.: Yes Was patient's pathology reviewed at [facility]? If no, comment.: Yes Was breast conservation surgery offered? If no, comment.: Yes Was sentinel node biopsy offered? If no, comment.: Yes Was diagnosis confirmed by percutaneous core biopsy? If no, comment.: Yes Is patient mastectomy patient?: No Was a preop referral to reconstructive surgeon offered?: No Clinical Stage: right breast invasive ductal cancer stage IIb T2 N1 M0 G3 ER negative PA negative HER2 positive tumor.
[2024-07-21] MEDS: LIDOCAINE 1% INJ 10MG/ML (20 ML MDV) SQ ONE ×3 (13:13→16:03)
[2024-07-21] MEDS: SODIUM BICARB 8.4% 50 ML VIAL (1 MEQ/ML) MISCELLANE ONE (13:13)
[2024-07-21 13:29] VITALS: RESP 16
[2024-07-21] MEDS: METHYLENE BLUE 50 MG/10 ML AMPUL MISCELLANE ONE (13:39)
[2024-07-21] MEDS: DEXAMETHASONE SOD PHOSPHATE 4 MG/ML 1 ML VIAL IV ONE (14:02)
[2024-07-21] MEDS: HEPARIN SODIUM,PORCINE 5,000 UNIT/ML 1 ML VIAL SQ PRN (14:03)
[2024-07-21] MEDS: ONDANSETRON 4 MG/2 ML VIAL IVP ONE (14:03)
[2024-07-21] MEDS ORDERED: PHENYLEPHRINE-0.9% NACL SYG 1,000 MCG/10 ML SYRINGE ONE (14:14)
[2024-07-21] MEDS ORDERED: PROPOFOL 10 MG/ML 20 ML VIAL IV ONE (14:14)
[2024-07-21] MEDS ORDERED: LIDOCAINE 1% INJ 10MG/ML (20 ML MDV) ONE (14:14)
[2024-07-21] MEDS ORDERED: MIDAZOLAM 2 MG/2 ML VIAL ONE (14:14)
[2024-07-21] MEDS ORDERED: HYDROmorphone (PF) 1 MG/ML ONE (14:14)
[2024-07-21] MEDS ORDERED: GLYCOPYRROLATE 0.2 MG/ML 2 ML VIAL ONE (14:14)
[2024-07-21] MEDS ORDERED: ePHEDrine 50 MG/ML 1 ML VIAL ONE (14:14)
[2024-07-21] MEDS ORDERED: fentaNYL (PF) 50 MCG/ML 2 ML AMP ONE (14:14)
[2024-07-21] MEDS ORDERED: SUCCINYLCHOLINE CHLORIDE 200 MG/10 ML VIAL IV ONE (14:14)
--- NOTE | 2024-07-21 14:31 | NM ---
EXAMINATION TYPE: NM sentinel node injection DATE OF EXAM: 07/21/2024 COMPARISON: NONE CLINICAL INDICATION: Female, 73 years old with history of RIGHT BREAST CA; TECHNIQUE AND FINDINGS: The procedure of sentinel lymph node injection was explained to the patient. The benefits, alternatives, and risks were discussed. An informed consent was then obtained. Overlying skin is cleaned with sterile alcohol. Following this, 510 uCi Tc99m Tilmanocept was inject ed in the upper outer aspect of the right nipple intradermally. The patient tolerated the procedure well without any immediate complication. The patient was kept in the radiology department for short stay after the procedure and then taken to surgery for surgical p rocedure what is presumed intraoperative gamma probe will be used for sentinel lymph node detection. IMPRESSION: Right breast radiotracer injection for sentinel node localization as above. [facility], , 07/21/2024 2:28 PM
--- NOTE | 2024-07-21 16:02 | P.BCAON ---
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 Postoperative Diagnosis: Same Procedure(s) Performed: Right breast needle localization lumpectomy, oncoplastic tissue transfer 39 cm, sentinel node biopsy Anesthesia: MARTHAA Surgeon: Yajaira Alcantara Estimated Blood Loss (ml): 15 IV fluids (ml): 700 Pathology: other (Breast tissue/axillary tissue sentinel node biopsy) Condition: stable Disposition: same day Indications for Procedure: Right breast invasive ductal carcinoma status post neoadjuvant chemotherapy Operative Findings: Necrotic tissue right breast at prior tumor site Description of Procedure: The patient was first seen in the radiology department for needle localization of the area of concern in the right breast was performed as well as needle localization of a prior biopsied positive axillary lymph node. The patient was then injected in the periareolar area with radiotracer to identify the sentinel node. Patient was brought to the operative suite. Following induction of anesthesia the neoprobe was used to interrogate the axilla. Radioactivity was identified. The right breast and axilla were prepped and draped in a sterile fashion. The right axilla was approached initially. An incision was made and carried down to the hook of the wire where surrounding tissue was excised. A palpable lymph node was identified and removed. Additionally a radioactive lymph node which was separate from the palpable node was identified and removed. The 10-second count on the radioactive lymph node was 13,578 a second lymph node was removed with a count of 3750 at 10 seconds the background count was then 20. After this tissue had been removed as well as the lymph node identified by the needle localization device the specimen was sent for radiograph. Radiograph revealed clip in the specimen. Following this the axilla was well irrigated. The deep tissues were closed using 3-0 Vicryl suture followed by closure of the skin with 4-0 Monocryl. The area of the breast was approached. An incision was made and carried down to the shaft of the needle. Surrounding tissue was excised. Methylene blue had been injected injected at the tip of the needle radiographically and this area was excised. The specimen cavity was 7 x 3 cm. The specimen was painted for orientation. Radiograph of the specimen revealed the clip in the area of concern had been removed. After reassured that hemostasis was attained titanium clips were placed. Surgicel in powder form was placed. A superior tissue mobilization of 5 x 3 cm was performed. Inferior tissue mobilization 3 x 1 cm was formed. The superior and inferior pillars were brought together to close the cavity. They were secured using 3-0 Vicryl suture. Total oncoplastic t issue transfer 39 cm. Following this the wound was well irrigated. The subcutaneous tissues were closed using 3-0 Vicryl suture. The skin was closed using 4-0 Monocryl. The patient tolerated the procedure in stable condition. All instrument and sponge counts were correct at the end of the case. Surgical glue was applied. 20 cc of 1% lidocaine was used to inject into the incisions. - Sentinal Node Biopsy Operation performed with curative intent: Yes Tracer(s) used in the neoadjuvant setting: radioactive tracer All nodes present at end of dye-filled channel removed: N/A All significantly radioactive nodes were removed: Yes All palpably suspicious nodes were removed: Yes Clipped positive nodes identified and removed: Yes
[2024-07-21 16:26] VITALS: TEMP 97
[2024-07-21 17:40] VITALS: BP 124/72; PULSE 78
== END 2024-07-21 17:41 | disposition home or self-care (01) ==
LOC: OR 10:57
PROVIDERS: ATTEND Surgery
DX: C50.211 Malignant neoplasm of upper-inner quadrant of right female breast (principal); C77.3 Secondary and unspecified malignant neoplasm of axilla and upper limb lymph nodes; I10 Essential (primary) hypertension; J44.9 Chronic obstructive pulmonary disease, unspecified; F41.9 Anxiety disorder, unspecified; M41.9 Scoliosis, unspecified; F32.A Depression, unspecified; Z79.899 Other long term (current) drug therapy; Z80.3 Family history of malignant neoplasm of breast; Z87.891 Personal history of nicotine dependence
CPT/HCPCS: 88305; 88342; 88307; 76098; 19281; 19285; 38792; 19301; 38525; C1819; A9520; J2250; J0330; J1644; J1100; J0690; J2405; J2003; J3010; J1171; J2704; Q9968; J2371; J1596

== ENCOUNTER → 2024-07-30 | Outpatient (CLI) | payer MEDICARE ==
[2024-07-30 11:46] VITALS: BP 126/85; PULSE 79; RESP 17; TEMP 97.2
--- NOTE | 2024-07-30 11:51 | P.BCPO ---
Progress Note - Text Progress Note Date: 07/30/24 Natalie is a 73 year old female status post right breast lumpectomy and SNB on 07-21-24. 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 Her margis were (-), Two node removed, one with macromets, Postoperatively she is doing well. Examination: Lungs: Clear Heart: Regular rate and rhythm Incision breast and axilla clean and dry, seroma at lumpectomy site Impression: Patient doing well postoperative Plan: Aspiration of seroma continue follow with medical oncology follow up radiation oncology Following informed consent the area of concern will be prepped with alcohol an 18-gauge needle and a 20 cc syringe was used to aspirate 50 cc of dark colored fluid. Post Op Education - Post Op Education Post Op Education Provided Date: 07/30/24 - Functional Assessment Performed?: Yes (arm abduction) Path Report - Was patient given path report? Path Report Date Given: 07/30/24
== END ==
LOC: WWCWWP 10:30
PROVIDERS: ATTEND Surgery
DX: Z12.31 Encounter for screening mammogram for malignant neoplasm of breast (principal); D05.11 Intraductal carcinoma in situ of right breast; F17.210 Nicotine dependence, cigarettes, uncomplicated; Z90.11 Acquired absence of right breast and nipple

== ENCOUNTER → 2024-08-14 | Outpatient (CLI) | payer MEDICARE ==
[2024-08-14 11:01] VITALS: BP 115/75; PULSE 82; RESP 17; TEMP 98.3
--- NOTE | 2024-08-14 11:30 | P.PN ---
Subjective Progress Note Date: 08/14/24 Progress Note - Text Progress Note Date: 08/14/24 Natalie is a 73 year old female status post right breast lumpectomy and SNB on 07-21-24. 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 Her margis were (-), Two node removed, one with macromets, recheck for seroma today 07-30-24 50 cc seroma aspirated 08-14-24 25 cc seroma aspirated Postoperatively she is doing well. Examination: Lungs: Clear Heart: Regular rate and rhythm Incision breast and axilla clean and dry, seroma at lumpectomy site Impression: Patient doing well postoperative Plan: Aspiration of seroma continue follow with medical oncology follow up radiation oncology Following informed consent the area of concern will be prepped with alcohol an 18-gauge needle and a 20 cc syringe was used to aspirate 25 cc of dark colored fluid. Post Op Education - Post Op Education Post Op Education Provided Date: 07/30/24 - Functional Assessment Performed?: Yes (arm abduction) Path Report - Was patient given path report? Path Report Date Given: 07/30/24 Additional CC's: Deborah Driver Objective - Vital Signs Vital signs: Vital Signs Temp 98.3 F 08/14/24 10:59 Pulse 82 08/14/24 10:59 Resp 17 08/14/24 10:59 BP 115/75 08/14/24 10:59 Pulse Ox 96 08/14/24 10:59 FiO2 Intake & Output 08/13/24 08/14/24 08/14/24 18:59 06:59 18:59 Weight 70.307 kg
== END ==
LOC: WWCWWP 10:35
PROVIDERS: ATTEND Surgery
DX: C50.911 Malignant neoplasm of unspecified site of right female breast (principal); Z90.11 Acquired absence of right breast and nipple; F17.210 Nicotine dependence, cigarettes, uncomplicated